=== PATIENT | female | born 1985 | race Two or more races ===

== ENCOUNTER 2023-05-31 05:25 | Inpatient (IN) | payer BC, SELFPAY ==
[2023-05-31] VITALS (17 sets, daily range): BP systolic 89–136; BP diastolic 54–86; PULSE 79–97; RESP 16–18; TEMP 36.1–36.6; O2SAT 96–100; BMI 30.9
[2023-05-31 05:18] LABS: ROM Internal Control Test YES-OK TO RESULT pt. (Internal QC)
[2023-05-31 05:19] LABS: ROM Patient Test POSITIVE (Negative); Record Kit Lot#, ROM+ K1374
[2023-05-31] MEDS: Lactated Ringers 1,000 ML 200 ML IV ×2 (05:40→07:09)
[2023-05-31 06:07] LABS: Absolute Lymphocyte Count 1.22 X10^3/uL (0.83-4.51); Absolute Neutrophil Count 6.1 X10^3/uL (2.0-7.7); Basophil# 0.02 X10^3/uL; Basophil% 0.2 % (0-1); Eosinophil# 0.07 X10^3/uL; Eosinophils% 0.9 % (0-5); Hematocrit 40.7 % (37-47); Hemoglobin 13.2 g/dL (12.0-15.0); Lymphocyte # 1.22 X10^3/ul (0.83-4.51); Mean Corp Hgb Conc 32.4 g/dL (32-36); Mean Corpuscular Hgb 29.5 pg (27.0-32.0); Mean Corpuscular Volume 90.8 fL (81-99); Mean Platelet Vol. 11.4 fl (6.2-12.0); Monocyte# 0.66 X10^3/uL; Monocyte% 8.1 % (0-10); NRBC Flagged by Analyzer 0 % (0-5); Neutrophil # 6.14 X10^3/uL (2.7-7.7); Neutrophil % 75.2 % (47-70); Platelet Count 183 K/mm3 (150-450); RBC Distribution Width CV 14.1 % (11.6-14.6); RBC Distribution Width SD 46.6 fl (35.1-43.9); Red Blood Count 4.48 M/mm3 (4.2-5.4); White Blood Count 8.2 K/mm3 (4.4-11.0)
[2023-05-31] MEDS: Acetaminophen 500 MG Tablet PO (06:17)
[2023-05-31] MEDS: Betamethasone/Betamethasone 30 MG/5 ML Vial 12 MG IM (06:20)
[2023-05-31] MEDS: Lactated Ringers 1,000 ML 999 ML IV (06:30)
--- NOTE | 2023-05-31 06:42 | HP.PCM.OB_ITS ---
HPI - General General Date of Admission: 05/31/23 HPI Narrative NEVILLE PARIKH, is a 38 F at 34.5 weeks gestation who presents to triage with leaking of fluid since 0200. Patient is a transfer of care. She received care in [facility] and was seen in office for visit and ultrasound last week. Breech presentation. Maternal Data Information JAMI Calculator Estimated Delivery Date Method Current WG Current Estimate 07/07/23 Manual 34w 5d PFSH PFSH Medical History no medical history Home Medications vit no.37-iron fum 29 mg iron-folic acid 1 mg chewable tablet (PreNata) tab PO 05/31/23 [History Last Taken Unknown] Allergy/AdvReac Type Severity Reaction Status Date / Time No Known Allergies Allergy Verified 05/31/23 05:06 Family History no significant family his Social History Smoking Status: Never smoker History Elective abortions Hx Para 0 Spontaneous abortions Hx # Term Pregnancies Ectopic pregnancies Hx # Pregnancies Multiple births # of living children ROS Eyes Eyes: Denies blurry vision, change in vision or spots in vision ENT HEENT: Denies dizziness or headache(s) Cardiovascular Cardiovascular: Denies abdominal pain, chest pain or dyspnea Respiratory/Chest Respiratory/Chest: Denies cough, dyspnea, shortness of breath at rest or shortness of breath with exertion Gastrointestinal Gastrointestinal: Denies abdominal pain, diarrhea or vomiting Genitourinary Genitourinary: Denies change in urinary stream, difficulty urinating or dysuria Musculoskeletal Musculoskeletal: Reports none Integumentary Integumentary: Denies rash Neurologic Neurologic: Denies dizziness, headache(s), memory loss or weakness Psychiatric Psychiatric: Reports none Vital Signs Vital Signs Vital Signs: 05/31/23 04:53 05/31/23 04:53 05/31/23 04:53 Temperature Temperature Source Pulse Rate 89 Blood Pressure 136/86 H BP Systolic 136 BP Diastolic 86 Pulse Ox 98 05/31/23 05:13 05/31/23 05:13 05/31/23 04:54 Temperature Temperature Source Temporal Pulse Rate 90 Blood Pressure 122/81 H BP Systolic 122 BP Diastolic 81 Pulse Ox 05/31/23 04:54 05/31/23 04:54 Temperature 97.1 F L Temperature Source Pulse Rate Blood Pressure BP Systolic BP Diastolic Pulse Ox 99 Weight Weight: 208 lb 12.444 oz Body Mass Index (BMI) 30.9 Physical Exam Const alert, oriented x3 and no apparent distress General Appearance: cooperative Orientation / Consciousness: awake Exam Limitations: no limitations HEENT normocephalic Head and Scalp: normal to inspection Eyes General Eye: normal appearance of both eyes Neck full ROM and no lymphadenopathy Lymph Lymphatic: no lymphadenopathy noted Chest inspection of chest normal Resp normal respiratory effort, normal air movement and clear to auscultation bilaterally Effort and Inspection: able to speak in complete sentences and symmetric chest movement Cardio regular rate and regular rhythm GI normal to inspection, nondistended, normoactive bowel sounds Manual OB Exam: presentation cephalic, dilated 4, effaced 80 and station 0 Amniotic Fluid: clear amniotic fluid Back/Spine normal ROM Extremity full ROM and no calf tenderness Skin no rashes or lesions noted General Skin Exam: no breakdown Neuro oriented x3 and CN's II-XII intact bilaterally Psych mental status grossly normal and thought process normal Labs Labs Labs: Blood Type Pending Antibody Screen Pending Hct 40.7 % (37-47) Hgb 13.2 g/dL (12.0-15.0) Syphilis Total Ab Pending Group B Strep DNA Pending Assessment & Plan (1) 34 weeks gestation of : (2) premature rupture of membranes: (3) Rubella non-immune status, antepartum: (4) AMA (advanced maternal age) multigravida 35+: (5) Breech presentation: PLAN: Plan TAUS confirms breech presentation ROM plus- positive Admit to labor and delivery for primary section Routine labs Dr. Jones involved with plan of care
[2023-05-31] MEDS: Sodium Citrate/Citric Acid 30 ML UDC PO (07:09)
[2023-05-31 07:20] LABS: Group B Strep DNA By PCR Negative (Negative); Internal Control PASS; Probe Check PASS; Specimen Processing Control PASS
[2023-05-31] MEDS: Cefazolin 2 GM in 0.9% Normal Saline 100 ML IV (07:20)
[2023-05-31] MEDS: Ondansetron 4 MG/2 ML Vial IV (08:05)
--- NOTE | 2023-05-31 08:14 | OP.PCM_ITS ---
Assessment & Plan (1) Breech presentation: (2) AMA (advanced maternal age) multigravida 35+: (3) premature rupture of membranes: (4) delivery delivered: Maternal Data Information JAMI Calculator Estimated Delivery Date Method Current WG Current Estimate 07/07/23 Manual 34w 5d Final JAMI: 07/07/23 Gestational age: 34 5/7 Details Operative Information Date of Procedure: 05/31/23 Pre-Operative Diagnosis: breech Post-Operative Diagnosis: same Indications for : Breech Classification: JASON Procedure Type: low transverse buffing machine tender #1: Sherri Bocanegra Type of Anesthesia: Spinal Anesthesiologist: Frantz Balderas Antibiotic Given: Ancef 2 grams IV x1 and Zithromax 500 mg/5 mL X1 Drain: Hogan to straight drain Estimated Blood Loss: 900 Fluids Replaced: 1000 Procedure Start Time: 07:50 Procedure Stop Time: 08:21 Time of Delivery: 07:53 Findings Description of Procedure: The patient was taken to the operating room. She was prepped and draped in the dorsal supine position with a leftward tilt. A Pfannenstiel skin incision was made approximately 2 cm above the symphysis pubis and carried through to underlying layer fascia with the scalpel. The fascia was incised incised in the midline and extended laterally with the Velazquez scissors. The fascia was dissected off the rectus muscles with blunt and sharp dissection. The rectus muscles were in the midline and the peritoneum was entered bluntly. The peritoneal incision was stretched and the bladder blade was placed. The uterine incision was made in a low transverse fashion with the scalpel and extended superiorly and inferiorly with blunt dissection. The amniotic membranes were ruptured bluntly and clear amniotic fluid returned. The breech was brought up to the incision and delivered without difficulty. The legs were swept out individually. A blue towel was placed around the neonates abdomen. The arms were swept out individually. And the head was delivered in a flexed position easily without any traction with gentle fundal pressure in the standard fashion. The mouth and nares were bulb suctioned. The cord was clamped and cut as the was stimulated. Cord clamping was not delayed and the was immediately handed off to the nursing staff. The was handed off to the waiting nursing staff. The placenta was delivered with fundal massage and gentle traction in the standard fashion. The uterus was left in situ the cervix was dilated with a ring forcep. The uterine incision was closed with #1 Vicryl in a running locked fashion. A second layer of the same suture was used to imbricate the first layer because there were some bleeding sinuses. The incision was examined and was found to be hemostatic. The abdominal cavity was cleared of all clots and debris and again uterine incision was examined and being found to be hemostatic. The rectus muscles were examined and any bleeding was Bovie cauterized. The parietal peritoneum and rectus muscles were closed en bloc with an 0 Vicryl running suture. The surgical teams outer gloves were then changed. The rectus fascia was examined and any bleeding was Bovie cauterized and the rectus fascia was closed with #1 PDS suture in a running standard fashion. The subcutaneous tissue was examining and any bleeding was Bovie cauterized. The subcutaneous tissue was reapproximated with 3-0 Vicryl suture. The skin was closed in a subcuticular fashion by the BOOKKEEPING MACHINE MECHANIC with me present in the labor and delivery suite. I performed the remainder of the procedure with assistance. All sponge, lap, and needle counts were correct. The patient was taken to her room for recovery in a stable condition. Presentation: Positive for Complete Breech Amniotic Membrane Rupture Type: Artificial Amniotic Fluid Description: Clear Placental Delivery Description: Expressed Placenta Disposition: Sent to Pathology Specimen(s) Sent to Pathology: placenta Cord Vessel Description: 3 Vessels Cord Entanglement: None Cord Gases: ABG and VBG Infant A Gender: Female (1 minute): 6 (5 minute): 9 Delayed Cord Clamping: No Complications Complications: none
[2023-05-31 08:30] LABS: Syphilis Antibodies Non-reactive
[2023-05-31] MEDS: Oxytocin 15 Units/NS 250ml 15 UNITS/250 ML IV.SOLN 83 UNITS IV (08:30)
[2023-05-31] MEDS: Ketorolac 30 MG/ML Syringe IV ×3 (09:11→21:36)
--- NOTE | 2023-05-31 10:10 | NURSING ---
0915 IBCLC at bedside assiting mother and father with use of hospital grade breast pump and pumping equipment from [facility]. Explained the plan for pumping, need for pumping and the benefits of colostrum and breastmilk to the baby. Explained the pump settings and mother was able to pump for 20min with assistance from IBCLC and and got 2.5ml. Taught parents how to label the breastmilk and swabs and how to wash the parts including sanitation every 24 hours. Indicate understanding and mother tolerated well, denied pain just c/o dizziness which bedside RN was at bedside monitoring VS and patient.
[2023-05-31] MEDS: Lactated Ringers 1,000 ML 100 ML IV ×2 (11:25→16:45)
[2023-05-31] MEDS: Acetaminophen 500 MG Tablet 1000 MG PO ×2 (11:55→17:59)
[2023-05-31] MEDS: Enoxaparin 40 MG/0.4 ML Syringe SC (20:32)
[2023-05-31] MEDS: 0.9% Saline Lock 10 ML Syringe IV (21:37)
[2023-06-01] MEDS: Acetaminophen 500 MG Tablet 1000 MG PO ×4 (00:02→18:09)
[2023-06-01 00:05] VITALS: BP 106/64; PULSE 88; RESP 16; TEMP 36.3; O2SAT 99
[2023-06-01 03:35] VITALS: BP 96/55; PULSE 89; RESP 16; TEMP 36.6; O2SAT 100
[2023-06-01] MEDS: Ketorolac 30 MG/ML Syringe IV (04:29)
[2023-06-01] MEDS: 0.9% Saline Lock 10 ML Syringe IV (04:29)
[2023-06-01 05:12] LABS: Hematocrit 32.8 % (37-47); Hemoglobin 10.9 g/dL (12.0-15.0); Mean Corp Hgb Conc 33.2 g/dL (32-36); Mean Corpuscular Hgb 30.4 pg (27.0-32.0); Mean Corpuscular Volume 91.6 fL (81-99); Mean Platelet Vol. 11.2 fl (6.2-12.0); Platelet Count 168 K/mm3 (150-450); RBC Distribution Width CV 13.9 % (11.6-14.6); RBC Distribution Width SD 46.7 fl (35.1-43.9); Red Blood Count 3.58 M/mm3 (4.2-5.4); White Blood Count 13.5 K/mm3 (4.4-11.0)
--- NOTE | 2023-06-01 09:04 | PCM.PN.OB ---
Subjective Subjective Pain well controlled. Average lochia. no N/V Objective Data Objective Data Vital Signs: Vital Signs Temp Pulse Resp BP Pulse Ox O2 Del Method 97.9 F 89 16 96/55 L 100 Room Air 06/01/23 03:35 06/01/23 03:35 06/01/23 03:35 06/01/23 03:35 06/01/23 03:35 06/01/23 03:35 Oxygen Delivery Method Room Air Weight: 94.7 kg Body Mass Index (BMI) 30.9 Intake & Output: Intake and Output for Last 24 Hours 05/30/23 05/31/23 06/01/23 23:59 23:59 23:59 Intake Total 3542.33 / 3542.33 Output Total 2250 / 2250 200 / 200 Balance 1292.33 / 1292.33 -200 / -200 Lab / Micro Data 06/01/23 05:05 Labs: Laboratory Results - last 24 hr 06/01/23 05:05: WBC 13.5 H, RBC 3.58 L, Hgb 10.9 L, Hct 32.8 L, MCV 91.6, MCH 30.4, MCHC 33.2, RDW Std Deviation 46.7 H, RDW Coeff of Charla 13.9, Plt Count 168, MPV 11.2 Physical Exam Const alert General Appearance: cooperative GI GI Narrative: soft, moderate distention, fundus firm, appropriately tender. Abdominal bandage clean dry and intact Assessment & Plan (1) delivery delivered: PLAN: POD#1 s/p c/s for breech. Doing well. in [facility]. Cont. routing care. Blood count appropriate for blood loss during surgery
--- NOTE | 2023-06-01 10:17 | CASEMGMT ---
Social Work Assessment Labor and Delivery Unit Patient Address: Address not known at this time- MOB states that they are in an AirBnB for a month while they secure more permanent housing. Phone number:[phone] Date of Referral: 06/01/23 Time of Referral:? [phone] Referred By: Yarely Newman Date of Intervention: ??06/01/23 Time of Intervention:? 929 Reason for Referral:? [place] transferred to [facility] Sw completed chart review and acknowledges social work consult entered. Sw presented to bedside, introduced self to mother of baby (THOMAS- Lashonda) and explained reason for sw involvement. Sw completed psychosocial assessment and provided MOB with literature on depression/ anxiety and Help Me Grow. History obtained from: medical records and mother of baby (THOMAS)??? Household composition: MOB states that currently residing in the home is herself, father of baby (FOSilvana- Fidencio) and now baby girl. MOB states that they recently moved to [place] for [employer]'s job and are still working on securing permanent housing, whether that is in an apartment or a house. MOB states that today is FOB's first day of work and he will be able to obtain a letter to confirm employment for the rental agency. MOB said they are looking in the [place] area to be close to [employer] job. Patient's parent/guardian status:?MOB states that she and FOB are , they met 7 years ago. They were introduced by their families. MOB states that she is safe at home and denies any concerns regarding domestic violence or intimate partner violence. FOB was involved at delivery. Baby is now admitted to [facility] so sw did not observe MOB or FOB provide direct care to baby. Medical History: THOMAS is 3, para 0- now 1. THOMAS was formerly residing in [facility] and started her care there. THOMAS moved to [place] in April and got connected with [facility] for OBGYN services. MOB states that she had four prior losses before being able to carry baby to 34 weeks gestation. MOB required to deliver baby. Baby was born on 06/01/23 weighing 4lb 8oz and her apgars were 6 and 9 at one and five minutes of life respectfully. Baby required admission to [facility] due to being born prematurely at 34 weeks gestation. Baby continues to require NG for ordered feeds, no discharge identified at this time. THOMAS states that she prefers to use [facility], but does not have a preference in Provider. Educational Status: Both parents have PHD's. MONICA has PHD in computer science. THOMAS has her PHD in Physics. Financial Status: Both parents are gainfully employed outside of the home. 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 MOB states that she has this semester off, and has to decide if she will return for spring or stay here with MONICA. Supplies:?MOB states that they do have some baby items, but do not have everything because they moved, and baby came early. MOB states that they do have a safe sleep space for baby, but are still needing to purchase a car seat. MOB states that they have the means to do this, but she was not sure where she should purchase one at. MOB states that she would prefer to go to [facility], but there isn't one close to [place]. Charito informed MOB that if she has difficulty obtaining a car seat prior to patient being ready for discharge to let sw know. MOB agreed to do so. MOB states that is also helping her obtain a breast pump because she has not gotten one of those yet. Childcare/Caregiver(s):?THOMAS states that she will be the primary caregiver to baby while she is on maternity leave. MOB states that FOSilvana will help her when he is not at work. MOB states that when it is time for her to return to work they will need to figure out childcare. Transportation:?Both parents have their drivers license and have reliable transportation. No barriers to transportation at this time. Programs/Agencies Involved: ??No linkage to community financial supports at this time. ? Children Services/Legal Issues:???No former involvement with Children Services. No issues or concerns warranting referral at this time. Behavioral Health Issues: ??Mental Health History: THOMAS denies mental health diagnoses for herself and MONICA. ? Substance Use History:?MOB denies substance use prior to or during . ? Family History:?MOB denies family mental health or substance use history. ? Drug Screens: ?No urine screens observed in chart review. Family/Social Stressors:? MOB states that it has been challenging to navigate all the changes that have happened in a short period of time. MOB states that she traveled on a 14 [address] flight from [facility] to [place] when she was 7 months . MOB states that she has stayed positive with all the changes and has a lot of support. Support Systems: MOB states that MONICA is her biggest support. MOB states that FOSilvana family lives in [place] and they are all supportive and she can talk to them anytime. MOB states that FOB co-workers are also very supportive and have been including them in get togethers. Depression/Shaken Baby/Safe Sleeping:?MOB states that she has heard the terms baby blues and depression but she does not know what to look for and if she would recognize in herself if she was experiencing symptoms. Sw educated MOB on signs and symptoms of baby blues, depression/ anxiety and psychosis. Sw explained that FOSilvana may also be able to help her recognize symptoms that she is experiencing even if she is not able to. Sw provided MOB with literature on these issues. Sw encouraged MOB to talk to her OBGYN if she ever feels as though she is struggling. Sw educated MOB on shaken baby prevention and ABCs of safe sleep. MOB expressed understanding. ASSESSMENT:?MOB was talkative and engaged in psychosocial assessment. MOB is new to the [place] area and would benefit from getting connected to additional resources to help with premature baby. MOB is receptive to getting connected to Help Me Grow when baby is ready for discharge from [facility]. MOB was polite and receptive to sw involvement and support. Sw encouraged MOB to reach out to sw should she have any additional needs or questions. MOB expressed understanding and agreed. PLAN:? Sw will continue to provide support to MOB and baby throughout current hospitalization. ?No other services requested or indicated. Giorgi Leary, MESH WORKER, CEMETERY WORKER
[2023-06-01] MEDS: Senna/Docusate Sodium 1 Tablet PO (10:29)
[2023-06-01] MEDS: Ibuprofen 600 MG Tablet PO ×3 (10:29→22:18)
[2023-06-01 10:33] VITALS: BP 108/71; PULSE 104; RESP 17; TEMP 36.9; O2SAT 100
[2023-06-01 15:57] VITALS: BP 109/76; PULSE 107; RESP 16; TEMP 37; O2SAT 99
[2023-06-01] MEDS: Enoxaparin 40 MG/0.4 ML Syringe SC (21:06)
[2023-06-01 21:10] VITALS: BP 106/86; PULSE 96; RESP 16; TEMP 37.1; O2SAT 96
[2023-06-02] MEDS: oxyCODONE 5 MG Tablet PO (00:24)
[2023-06-02] MEDS: Acetaminophen 500 MG Tablet 1000 MG PO ×4 (00:24→21:26)
[2023-06-02 03:15] VITALS: BP 103/66; PULSE 88; RESP 16; TEMP 36.6; O2SAT 97
[2023-06-02] MEDS: Ibuprofen 600 MG Tablet PO ×4 (05:12→23:27)
--- NOTE | 2023-06-02 08:54 | PCM.PN.OB ---
Subjective Subjective Pain mostly controlled Objective Data Objective Data Vital Signs: Vital Signs Temp Pulse Resp BP Pulse Ox O2 Del Method 97.9 F 88 16 103/66 97 Room Air 06/02/23 03:15 06/02/23 03:15 06/02/23 03:15 06/02/23 03:15 06/02/23 03:15 06/02/23 03:15 Oxygen Delivery Method Room Air Weight: 208 lb 12.444 oz Body Mass Index (BMI) 30.9 Intake & Output: Intake and Output for Last 24 Hours 05/31/23 06/01/23 06/02/23 23:59 23:59 23:59 Intake Total 3542.33 / 3542.33 Output Total 2250 / 2250 200 / 200 Balance 1292.33 / 1292.33 -200 / -200 Lab / Micro Data 06/01/23 05:05 Physical Exam Const alert, oriented x3 and no apparent distress HEENT normocephalic GI soft to palpation, non-tender and non-distended GI Narrative: fundus firm, mid & below umbilicus Incision - bandage c/d/i Extremity normal to inspection and no calf tenderness Assessment & Plan (1) delivery delivered: COMMENT: POD#2 (2) Breech presentation: QUALIFIERS: Fetus number: single or unspecified fetus Qualified Code(s): O32.1XX0 - Maternal care for breech presentation, not applicable or unspecified PLAN: Plan Routine care Plan for discharge to home tomorrow
[2023-06-02 09:13] VITALS: BP 111/71; PULSE 87; RESP 16; TEMP 36.4; O2SAT 99
[2023-06-02 15:00] VITALS: BP 108/78; PULSE 86; RESP 16; TEMP 36.2; O2SAT 98
[2023-06-02 19:50] VITALS: BP 114/73; PULSE 81; RESP 15; TEMP 37; O2SAT 99
[2023-06-02] MEDS: Enoxaparin 40 MG/0.4 ML Syringe SC (20:01)
[2023-06-03 04:34] VITALS: BP 120/77; PULSE 74; RESP 15; TEMP 37.1; O2SAT 98
[2023-06-03] MEDS: Acetaminophen 500 MG Tablet 1000 MG PO ×3 (04:35→16:55)
[2023-06-03] MEDS: Ibuprofen 600 MG Tablet PO ×2 (05:48→13:49)
[2023-06-03 07:37] VITALS: BP 101/66; PULSE 79; RESP 16; TEMP 36.7; O2SAT 98
--- NOTE | 2023-06-03 08:11 | PCM.PROGNOTE ---
Subjective Subjective patient seen at bedside, doing well. Patient reports good pain control. lochia mild. Objective Data Objective Data Vital Signs: Vital Signs Temp Pulse Resp BP Pulse Ox O2 Del Method 98.1 F 79 16 101/66 98 Room Air 06/03/23 07:37 06/03/23 07:37 06/03/23 07:37 06/03/23 07:37 06/03/23 07:37 06/03/23 07:37 Oxygen Delivery Method Room Air Weight: 94.7 kg Body Mass Index (BMI) 30.9 Intake & Output: Intake and Output for Last 24 Hours 06/01/23 06/02/23 06/03/23 23:59 23:59 23:59 Output Total 200 / 200 Balance -200 / -200 Lab / Micro Data 06/01/23 05:05 Micro: Microbiology 05/31/23 Unknown Genital vaginal Group B Streptococcus Culture - Final Group B Beta Streptococcus is not isolated. Physical Exam Narrative abd: dressing dry and intact. Const alert and oriented x3 General Appearance: cooperative HEENT normocephalic Neck General: normal visual inspection GI soft to palpation and non-distended GI Narrative: Fundus firm Extremity normal to inspection and no calf tenderness Skin no rashes or lesions noted Neuro oriented x3 and CN's II-XII intact bilaterally Psych mental status grossly normal Assessment & Plan Assessment/Plan (1) delivery delivered: (2) Breech presentation: QUALIFIERS: Fetus number: single or unspecified fetus Qualified Code(s): O32.1XX0 - Maternal care for breech presentation, not applicable or unspecified (3) AMA (advanced maternal age) multigravida 35+: (4) Rubella non-immune status, antepartum: (5) premature rupture of membranes: (6) 34 weeks gestation of : PLAN: Plan POD#3 , Doing well Routine care pain mgmt monitor VS ambulation dc to [facility]
--- NOTE | 2023-06-03 08:12 | DCINST_ITS ---
Discharge Instructions Diet Discharge Diet: No restrictions Activity May resume sexual activity in: 6-8 weeks Lifting Restrictions: 25 Dressing / Incision Call your doctor if your incision/area has: Continuous Slow Oozing, Sudden Increased Bleeding, Increased Pain/ Swelling, Increased Redness, Foul Smelling Discharge and Swelling at the incision site Call your doctor if you observe: Fever of 101 or Higher, Inability to urinate, Using more than 1 pad per hour and Uncontrolled pain Additional Dressing/Incision Instructions:: remove dressing at 7 days post op- if it becomes saturated prior to that time you may remove it. Let soap and water run over incision sites and dab dry. keep incision clean and dry. Follow Up Care Please Follow Up With: Yarely Sanchez MD When: 1-2 weeks post of incision check and again at 6 weeks post . [phone] Test Results: Test results from this visit will be discussed in further detail at your follow- up appointment, if applicable. Discharge Plan Admission Admit Date/Time: 05/31/23 05:25 Attending Provider: Jimena Jones Primary Care Provider: Care Physician,No Primary Consulting Providers: Nataliia Melendez Discharge Orders/Prescriptions Prescriptions: New sennosides-docusate sodium [Stool Softener-Stimulant Laxat] 8.6-50 mg Tablet 1 - 2 tab PO DAILY Qty: 0 0RF acetaminophen 500 mg Tablet 1,000 mg PO Q6 Qty: 0 0RF ibuprofen 600 mg Tablet 600 mg PO Q6H Qty: 0 0RF simethicone 80 mg Tablet,Chewable 80 mg PO PCHS PRN (Reason: Indigestion/stomach pain) Qty: 0 0RF Continued PreNata 29 mg iron- 1 mg tablet,chewable PO Referrals / Follow Up: Care Physician,No Primary [Primary Care Provider] -
--- NOTE | 2023-06-03 08:13 | DS.PCM_ITS ---
Discharge Summary Date of Admission: 05/31/23 Date of Discharge: 06/03/23 Summary: Admitted to [facility] on 05/31/2023 for spontaneous rupture membranes at 34 weeks gestation breech presentation underwent a low transverse section performed by Dr. Jimena Jones. Had an uncomplicated postoperative course discharged home on postoperative day #3 in stable condition Meaningful Use Info Meaningful Use Diagnoses (Choose all that apply): None applicable Discharge Plan Admission Admit Date/Time: 05/31/23 05:25 Attending Provider: Jimena Jones Primary Care Provider: Care Physician,No Primary Consulting Providers: Nataliia Melendez Discharge Orders/Prescriptions Prescriptions: New sennosides-docusate sodium [Stool Softener-Stimulant Laxat] 8.6-50 mg Tablet 1 - 2 tab PO DAILY Qty: 0 0RF acetaminophen 500 mg Tablet 1,000 mg PO Q6 Qty: 0 0RF ibuprofen 600 mg Tablet 600 mg PO Q6H Qty: 0 0RF simethicone 80 mg Tablet,Chewable 80 mg PO PCHS PRN (Reason: Indigestion/stomach pain) Qty: 0 0RF Continued PreNata 29 mg iron- 1 mg tablet,chewable PO Referrals / Follow Up: Care Physician,No Primary [Primary Care Provider] -
[2023-06-03 16:50] VITALS: BP 107/71; PULSE 86; RESP 16; TEMP 36.4
== END 2023-06-03 17:15 | disposition home or self-care (01) | DRG 788 ==
LOC: WPOUT 05:30 → WP 05:30
PROVIDERS: Advanced Practice Midwife; Admitting Provider Obstetrics & Gynecology; Referring Provider Obstetrics & Gynecology; Visit Provider Obstetrics & Gynecology
DX: O32.1XX0 Maternal care for breech presentation, not applicable or unspecified (principal); O26.23 Pregnancy care for patient with recurrent pregnancy loss, third trimester; O42.913 Preterm premature rupture of membranes, unspecified as to length of time between rupture and onset of labor, third trimester; Z3A.34 34 weeks gestation of pregnancy; Z37.0 Single live birth
CPT/HCPCS: 59025; 59050; 76815; 84112; 85025; 85027; 86780; 86850; 86900; 86901; 87081; 87653; 99221; J7120; A4216; G0378; J0702; J2405